=== PATIENT | male | born 1955 | race Caucasian/White ===

== ENCOUNTER → 2017-07-10 | Outpatient (CLI) | payer MEDICAID | LOC: CARD 09:32 | PROVIDERS: ATTEND Internal Medicine Cardiovascular Disease | DX: I10 Essential (primary) hypertension (principal); E78.2 Mixed hyperlipidemia; R06.02 Shortness of breath; Z72.0 Tobacco use | CPT/HCPCS: 93306 ==

== ENCOUNTER → 2017-07-17 | Outpatient (CLI) | payer MEDICAID ==
[~2017-07-17] MED LIST: CATHETER FLUSH 10 ML SYR IV PRN; REGADENOSON 0.4 MG/5 ML SYR (LEXISCAN) IV ONE
[2017-07-17 13:04] VITALS: BP 156/104
[2017-07-17 13:18] VITALS: BP 152/100
--- NOTE | 2017-07-17 21:02 | STRESS TEST ---
DATE OF SERVICE: 07/17/2017 LEXISCAN MYOVIEW STRESS TEST REPORT REFERRING PHYSICIAN: Dr. Cristina Christine. Baseline heart rate is 74. Baseline blood pressure is 156/104. Baseline EKG is sinus rhythm with no ischemic changes. In summary, the patient was scheduled initially for exercise stress test, received 10.4 mCi of technetium-99 Myoview and exercised for 4 minutes and 10 seconds on standard [place] protocol, achieving maximum heart rate of 118. The patient was unable to exercise to perform any further. Test was terminated and converted to Lexiscan Myoview. With peak exercise level, EKG was showing nondiagnostic changes. Blood pressure was 198/107. Then, the patient received 0.4 mg of Lexiscan followed by 32.4 mCi of technetium-99 Myoview. Throughout the test, there were no EKG changes. The resting and stress images were reviewed and compared in the short axis, horizontal long axis and vertical long axis views. Review of the images showed increased gastric uptake and diaphragmatic attenuation affecting the quality of the images. There is fixed defect involving the mid to apical inferior wall. SSS is 6, SDS is 1. No significant ischemia was noted. TID value 1.14. On the gated images, the left ventricle appeared to be normal size with normal contractility with calculated ejection fraction of 69%. CONCLUSION: 1. The patient was unable to exercise beyond 4 minutes and 10 seconds on standard [place] protocol. Test was converted to Lexiscan Myoview stress test. 2. Hypertensive response to exercise, return to baseline during recovery. 3. Minimal nondiagnostic EKG changes with exercise return to baseline during recovery. 4. The patient tolerated Lexiscan well. 5. Diaphragmatic attenuation and increased gastric uptake affecting the quality of the images with mild fixed defect at the mid to apical inferior wall with no significant ischemia. 6. Normal left ventricular size with normal contractility. Calculated ejection fraction of 69%. Job ID: [id number] DocumentID: [id number] Dictated Date: 07/17/2017 14:26:36 [employer] Manager Date: 07/17/2017 21:01:31 Dictated By: CARLINE ACEVEDO MD
== END ==
LOC: CARD 12:10
PROVIDERS: ATTEND Internal Medicine Cardiovascular Disease
DX: I10 Essential (primary) hypertension (principal); E78.2 Mixed hyperlipidemia; R06.02 Shortness of breath; Z72.0 Tobacco use
CPT/HCPCS: 78452; 93017